=== PATIENT | male | born 1970 | race Caucasian/White ===

== ENCOUNTER → 2020-08-14 | Outpatient (CLI) | payer OTHER ==
--- NOTE | 2020-08-14 12:27 | KCIC ---
XR OS CALCIS_LT 2+ VIEWS History: Right heel pain 6-7 months. Comparison: None. Technique: 2 views of the right heel. Findings: Osseous mineralization is normal. No fracture or dislocaton. Residual os trigonum. Tiny Achilles inse rtion enthesophyte. No focal soft tissue swelling. Impression: 1. No significant abnormality in the right heel. Electronically signed by: Johnny Del Angel MD (08/14/2020 12:25 PM) [facility]
== END ==
LOC: KCIC 10:32
PROVIDERS: ATTEND Nurse Practitioner Gerontology
DX: M77.51 Other enthesopathy of right foot and ankle (principal)
CPT/HCPCS: 73650